=== PATIENT | female | born 1995 | race Caucasian/White ===

== ENCOUNTER 2021-07-14 20:20 | Emergency (ER) | payer MEDICAID ==
[~2021-07-14] VITALS: Ht 162.6 cm; Wt 64.0 kg
[2021-07-14 21:31] LABS: BASOPHILS % 0.2 % (0.0-2.0); EOSINOPHILS % 0.8 % (0.0-5.0); HEMATOCRIT. 45.2 % (36.0-48.0); HEMOGLOBIN. 15.3 g/dL (12.0-16.0); LYMPHOCYTES % 27.8 % (20.0-50.0); MEAN CORPUSCULAR HEMOGLOBIN 28.4 pg (28.0-32.0); MEAN CORPUSCULAR VOLUME 84.1 fL (81.0-99.0); MEAN PLATELET VOLUME 8.4 fl (7.4-10.4); MONOCYTES % 8.3 % (2.0-8.0); NEUTROPHILS % 62.9 % (40.0-76.0); PLATELET 322 x1000/uL (130-400); RED BLOOD CELL COUNT 5.38 mill/uL (4.2-5.4)
[2021-07-14 21:39] LABS: CHLORIDE 103 mEq/L (98-107); HCG SCREEN NEGATIVE
[2021-07-14 23:17] VITALS: BP 112/80
== END 2021-07-15 00:13 | disposition home or self-care (01) ==
LOC: ER 20:20
DX: R07.89 Other chest pain (principal); R56.9 Unspecified convulsions; E11.9 Type 2 diabetes mellitus without complications
CPT/HCPCS: 36415; 71045; 80053; 84484; 84703; 85025; 93005; 99285

== ENCOUNTER 2022-05-10 02:49 | Observation (INO) | payer MEDICAID, OTHER ==
[~2022-05-10] VITALS: Ht 167.6 cm; Wt 81.6 kg
[2022-05-10] MEDS ORDERED: CITRIC ACID/SODIUM CITRATE SOLN 30ML UDC PO PRN (03:45)
[2022-05-10] MEDS: ACETAMINOPHEN 650MG/20.3ML UDC PO PRN ×3 (04:00→06:38)
[2022-05-10] MEDS: LACTATED RINGERS 1,000 ML IV SCH ×2 (04:02→05:43)
[2022-05-10] MEDS ORDERED: PNV1TABL76 PO (04:42)
[2022-05-10] MEDS ORDERED: ASPI-986 MT (04:42)
[2022-05-10 04:57] LABS: BASOPHILS % 0.6 % (0.0-2.0); EOSINOPHILS % 0.5 % (0.0-5.0); HEMATOCRIT. 34.1 % (36.0-48.0); HEMOGLOBIN. 11.4 g/dL (12.0-16.0); LYMPHOCYTES % 21.6 % (20.0-50.0); MEAN CORPUSCULAR VOLUME 89.9 fL (81.0-99.0); MEAN PLATELET VOLUME 8.9 fl (7.4-10.4); MONOCYTES % 9.1 % (2.0-8.0); NEUTROPHILS % 68.2 % (40.0-76.0); PLATELET 190 x1000/uL (130-400); RED BLOOD CELL COUNT 3.79 mill/uL (4.2-5.4); RED CELL DISTRIBUTION WIDTH 14.5 % (11.6-14.6)
[2022-05-10 05:01] LABS: CLARITY URINE CLEAR (CLEAR); COLOR URINE YELLOW (YELLOW); KETONES URINE TRACE (NEGATIVE); LEUKOCYTE ESTERASE URINE NEGATIVE (NEGATIVE); NITRITE URINE NEGATIVE (NEGATIVE); OCCULT BLOOD URINE NEGATIVE (NEGATIVE); PROTEIN URINE NEGATIVE (NEGATIVE); SPECIFIC GRAVITY URINE 1.027 (1.005-1.030)
[2022-05-10 05:17] LABS: CHLORIDE 107 mEq/L (98-107)
[2022-05-10 05:26] LABS: D-DIMER 1.55 mg/L FEU (<0.50); INR 0.9; PARTIAL THROMBOPLASTIN TIME 26.7 sec (23.4-31.0); PROTHROMBIN TIME 9.9 sec (9.6-11.0)
[2022-05-10] MEDS ORDERED: TERBUTALINE SULFATE 1MG/ML VIAL SUBCUT NR (06:00)
[2022-05-10] MEDS ORDERED: INSULIN LISPRO 100 UNITS/ML SUBCUT SCH ×2 (07:00→11:30)
[2022-05-10] MEDS ORDERED: INSULIN GLARGINE 100 UNITS/ML SUBCUT SCH ×2 (07:00→17:00)
[2022-05-10] MEDS ORDERED: ASPIRIN 81MG TABLET PO SCH (09:00)
[2022-05-10] MEDS ORDERED: PRENATAL VIT/FE FUMARATE/FA TABLET PO SCH (09:00)
[2022-05-10] MEDS ORDERED: LAMOTRIGINE 100MG TABLET PO SCH (09:00)
== END 2022-05-10 09:00 | disposition left against medical advice (07) ==
LOC: 8 EST LDRP 02:49 → INTOOBSV 02:49 → OBSVTOIN 02:49
PROVIDERS: ADMIT Specialist; ATTEND Specialist
DX: O62.9 Abnormality of forces of labor, unspecified (principal); O26.893 Other specified pregnancy related conditions, third trimester; R56.9 Unspecified convulsions; R10.10 Upper abdominal pain, unspecified; R51.9 Headache, unspecified; O24.419 Gestational diabetes mellitus in pregnancy, unspecified control; Z3A.34 34 weeks gestation of pregnancy; Z98.891 History of uterine scar from previous surgery
CPT/HCPCS: 36415; 59025; 76805; 76818; 80053; 81003; 84550; 85025; 85379; 85384; 85610; 85730; 96360; 96361; 96372; G0378; J3105; 99281; J7120

== ENCOUNTER 2023-07-04 21:10 | Emergency (ER) | payer MEDICAID, OTHER ==
[~2023-07-04] VITALS: Ht 162.6 cm; Wt 69.0 kg
[~2023-07-04 21:10] MED LIST: ASPI-986 MT; PNV1TABL76 PO
[2023-07-04 21:18] VITALS: TEMP 98.4; O2SAT 98
[2023-07-04] MEDS: SODIUM CHLORIDE 0.9% 1,000 ML IV ONE (21:30)
[2023-07-04 22:03] LABS: BASOPHILS % 0.9 % (0.0-2.0); EOSINOPHILS % 1.1 % (0.0-5.0); HEMATOCRIT. 41.4 % (36.0-48.0); HEMOGLOBIN. 14.2 g/dL (12.0-16.0); LYMPHOCYTES % 31.8 % (20.0-50.0); MEAN CORPUSCULAR HGB CONC 34.4 g/dL (31.0-37.0); MEAN CORPUSCULAR VOLUME 87.4 fL (81.0-99.0); MEAN PLATELET VOLUME 8.8 fl (7.4-10.4); MONOCYTES % 7.5 % (2.0-8.0); NEUTROPHILS % 58.7 % (40.0-76.0); PLATELET 288 x1000/uL (130-400); RED BLOOD CELL COUNT 4.73 mill/uL (4.2-5.4); RED CELL DISTRIBUTION WIDTH 13.8 % (11.6-14.6); WHITE BLOOD COUNT 7.9 x1000/uL (4.5-11.0)
[2023-07-04 22:13] LABS: CHLORIDE 104 mEq/L (98-107); POTASSIUM 3.8 mEq/L (3.5-5.1); SODIUM 138 mEq/L (136-145)
[2023-07-04 22:14] LABS: CALCIUM 10.3 mg/dL (8.7-10.4); CARBON DIOXIDE 24 mEq/L (21-32)
[2023-07-04 22:16] LABS: HCG SCREEN NEGATIVE
[2023-07-04 22:19] LABS: CREATININE 0.6 mg/dL (0.6-1.0); GLUCOSE 163 mg/dL (70-105)
[2023-07-04 22:20] LABS: UREA NITROGEN BLOOD 13 mg/dL (9-23)
[2023-07-04 22:21] LABS: ALANINE AMINOTRANSFERASE 21 IU/L (10-49); ALBUMIN 4.6 g/dL (3.2-4.8); ASPARTATE AMINOTRANSFERASE 29 IU/L (<34)
[2023-07-04 22:22] LABS: BILIRUBIN TOTAL 0.3 mg/dL (0.1-1.0); PROTEIN TOTAL 7.8 g/dL (6.0-8.3)
[2023-07-04] MEDS: MAGNESIUM/ALUMINUM HYDROXIDE/SIMETHICONE 30ML UDC PO ONE (22:30)
[2023-07-04 22:31] LABS: ETHANOL BLOOD < 10 mg/dL (<10); TROPONIN I HIGH SENSITIVITY < 4 ng/L (3.0-34)
[2023-07-04] MEDS: PANTOPRAZOLE SODIUM 40 MG/VIAL IV ONE (22:50)
[2023-07-04] MEDS: ONDANSETRON HCL 4MG/2ML INJ IV ONE (22:50)
[2023-07-04 23:13] LABS: INR 0.9
[2023-07-05] MEDS ORDERED: IOHEXOL-300 100 ML BOTTLE ONE (00:55)
[2023-07-05] MEDS ORDERED: PROT40 MT (01:04)
[2023-07-05] MEDS ORDERED: ONDA4TAB50 MT (01:04)
[2023-07-05] MEDS ORDERED: ACET-2708 MT (01:04)
[2023-07-05] MEDS: ACETAMINOPHEN 325MG TABLET PO ONE (01:15)
[2023-07-05 01:39] VITALS: BP 117/64; PULSE 80; RESP 17
== END 2023-07-05 01:44 | disposition home or self-care (01) ==
LOC: ER 21:10
DX: R10.84 Generalized abdominal pain (principal); F41.9 Anxiety disorder, unspecified; E11.9 Type 2 diabetes mellitus without complications; I10 Essential (primary) hypertension; G43.909 Migraine, unspecified, not intractable, without status migrainosus; Z88.8 Allergy status to other drugs, medicaments and biological substances
CPT/HCPCS: 80053; 80320; 84703; 85025; 85610; 86850; 86900; 86901; 84484; 36415; 74177; 93005; 96361; 96374; 96375; 99285; J2405; C9113; J7030; Q9967; G0480